=== PATIENT | male | born 1985 | race Caucasian/White ===

== ENCOUNTER → 2017-03-27 | Day surgery (SDC) | payer OTHER ==
[~2017-03-27] VITALS: Ht 175.3 cm; Wt 92.5 kg
[~2017-03-27] MED LIST: BACTRIM DS TAB1 EACH PO; HYDROCODON-ACE1 EAC8 PO; KEFLEX500 MG PO; TRIPLE ANTIBIO1 EACH TOP
--- NOTE | 2017-03-27 12:13 | NUR ---
MED REC COMPLETE--FACILITY MAR
--- NOTE | 2017-03-27 14:11 | NUR ---
03/27/17 1411 Marianna mC PT ARRIVES TO DEPT AWAKE AND TALKING W/EOCI OFFICERS (2). PT REPORTS IMPROVEMENT IN PAIN AFTER PRN.
--- NOTE | 2017-03-30 14:28 | HP ---
[facility] [address], [place] [address] Signed DATE OF ADMISSION: 03/27/17 CHIEF COMPLAINT: Genital problem. HISTORY PRESENTING ILLNESS Mr. Ellis is a 32-year-old male who is a prisoner at the [facility] who presented to the emergency department this morning with a seven-day history of erythema and swelling associated with a foreign body that had been previously placed under the skin of his penis around four years ago. The patient denies any fevers and chills; however, he does have a temperature of 10 0 .2 degrees Fahrenheit on presentation today. Initially, the patient was adamant that he wanted to keep the marble in place and just have the skin closed over the top of the marble. He otherwise states that he feels fine and denies any subjective fevers, c hills, or any severe discomfort associated with the foreign body. He has a normal erectile function and denies any difficulties voiding. He also has two other marbles in place on the dorsal shaft of the penis that do not appear to be infected. REVIEW OF SYSTEMS GENITOURINARY: Positive for swelling and erythema of the distal penile shaft, associated with some mild tenderness of the superficial foreign body of the penis. CONSTITUTIONAL: The patient denies any fevers, chills, nausea, vomiting, abdominal pain, shortness of breath, or difficulty voiding. PAST MEDICAL HISTORY: None. PAST SURGICAL HISTORY The patient has undergone surgery on his right ankle three times, along with wrist surgery. SOCIAL HISTORY The patient is currently a prisoner at [facility]. He has been incarcerated for three years and is due to remain incarcerated for approximately four more years. He denies any tobacco or alcohol use. FAMILY HISTORY Family history has been reviewed, and there is nothing pertinent to the patient's current clinical presentation. PHYSICAL EXAM VITAL SIGNS: The patient's temperature is 100.2 degrees Fahrenheit. He is otherwise vitally stable. GENERAL: The patient is alert and oriented and in no acute distress. He is answering all Electronically Signed By: MADHAV JAVIER MD 03/30/17 1428 PATIENT NAME: SCOOBY ESPARZA HISTORY AND PHYSICAL DATE OF : 89 PHYSICIAN: MADHAV JAVIER MD REPORT #: [id number] REPORT IS CONFIDENTIAL AND NOT TO BE RELEASED WITHOUT AUTHORIZATION [facility] [address], [place] [address] Signed questions appropriately. CARDIOVASCULAR: Reveals a regular rate and rhythm. LUNGS: His lungs are clear to auscultation. ABDOMEN: Soft and nondistended. GENITOURINARY: Reveals the presence of a black marble that is approximately 1 cm in diameter that is a protruding from underneath the superficial skin of the penis. I suspect that the marble is beneath the Carrion's fascia, but is superficial to the tunic albuginea of the corporal bodies. The marble is mobile, and the skin surrounding the marble is erythematous, and there is an area of necrotic tissue within the wound. Otherwise, it does not appear to be fluctuant. LABS CBC and BMP were drawn in the Emergency Department and both are within normal limits. Of note, his white blood cell count is 5.5. Creatinine 0.8. IMAGING: None. ASSESSMENT: Superficial foreign body of the penis, infected. PLAN I had a long discussion today with the patient and finally was able to talk him into explanting the marble. He initially only wanted the closure of the skin over the marble; however, I explained to him that this would very much likely result in worsening infection of the area and could potentially begin to involve his corporal bodies. After a long discussion, I was able to talk the patient into explantation of the marble along with thorough irrigation of the remaining pocket and possible loose closure of the wound site. I explained the risks and benefits of the procedure including bleeding, residual infection, and damage to the corporal bodies, and the patient has agreed to proceed. He ate at 0530 this morning, so we will begin surgery at around 1 or 1:30 p.m. later today. Once the surgery is complete, the patient will be sent back to the detention and will remain in the infirmary for the next one to two weeks. MD JEANNIE Bowman/Kalyan /[id number] Electronically Signed By: MADHAV JAVIER MD 03/30/17 1428 PATIENT NAME: SCOOBY ESPARZA HISTORY AND PHYSICAL DATE OF : 89 PHYSICIAN: MADHAV JAVIER MD REPORT #: [id number] REPORT IS CONFIDENTIAL AND NOT TO BE RELEASED WITHOUT AUTHORIZATION [facility] [address] [place] [id number] Signed cc: Antonio Reaves MD Electronically Signed By: MADHAV JAVIER MD 03/30/17 1428 PATIENT NAME: SCOOBY ESPARZA HISTORY AND PHYSICAL DATE OF : 89 PHYSICIAN: MADHAV JAVIER MD REPORT #: [id number] REPORT IS CONFIDENTIAL AND NOT TO BE RELEASED WITHOUT AUTHORIZATION
--- NOTE | 2017-03-30 14:28 | OR ---
[facility] [address], [place] [address] Signed DATE OF PROCEDURE: 03/27/17 PREOPERATIVE DIAGNOSIS: Superficial foreign body in the penis, infected. POSTOPERATIVE DIAGNOSIS: Superficial foreign body in the penis, infected. NAMES OF PROCEDURES Excision of foreign body from penis. Drainage and irrigation of infected penile wound, followed by loose closure. SURGEONS: Madhav Javier. ANESTHESIA: MAC. ESTIMATED BLOOD LOSS: Minimal. COMPLICATIONS: None. SPECIMENS: Infected round object placed in a specimen cup. COMPLICATIONS: None. INDICATIONS FOR PROCEDURE Mr. Moses is a healthy 32-year-old male who presented to emergency department this morning with a 7-day history of swelling and erythema around a foreign body present in the pendulous portion of the urethra, on the dorsal side. Initially, there were 2 foreign bodies present; however, 1 was removed manually by the patient. He presented this morning requesting that the wound to be closed; however, we did not agree to this because the wound appeared actively infected. After a long discussion with the patient, he did agree to undergo excision of the foreign body from the penis along with thorough irrigation of the infected area as well as wound closure. DETAILS OF THE PROCEDURE After informed consent was obtained, the patient was taken back to the operating room. He was transferred from the [facility] to the operative room table where MAC anesthesia was induced. He was placed in the supine position and his genitalia were prepped and draped in the standard sterile fashion. A small incision was made over the foreign body, which was then removed from under the skin without difficulty. A curette was then used to do debride the inflammatory pocket created by the foreign body. There was a wound noted just inferior to the existing wound that was the area of which the previous marble had been placed. This area was thoroughly irrigated and debrided as well during today's procedure. After debridement of the wound, it was then irrigated with both hydrogen Electronically Signed By: MADHAV JAVIER MD 03/30/17 1428 PATIENT NAME: SCOOBY MOSES OPERATIVE REPORT DATE OF : 89 PHYSICIAN: MADHAV JAVIER MD REPORT #: [id number] REPORT IS CONFIDENTIAL AND NOT TO BE RELEASED WITHOUT AUTHORIZATION [facility] [address] [place], [place] [address] Signed peroxide as well as neomycin solution. The edges of the wound were then incised until I could appreciate healthy tissue on both sides of the wound. Again, the wound was thoroughly irrigated. Once I was satisfied that the wound was clean, it was then closed in a simple interrupted fashion using 3-0 Vicryl. I did leave some areas without sutures in case the wound required any drainage in the postoperative period. The area was then cleaned and dried and dressings were applied. The procedure was then terminated. The patient tolerated the procedure well without any complication. He will now be transferred to the post anesthesia care unit in stable condition. DISPOSITION The patient is a prisoner at [facility], and will be transferred back over to the [facility] today. Instructed the patient to keep his current dressing on for at least the next 48 hours to allow epithelialization of the incision. Once the dressing is removed, he can leave it open to air and try to avoid manipulating the incision as much as he can. He will be continuing his Keflex for the next few days per his existing prescription by the snf physician. I will add oral Bactrim Double Strength b.i.d. for a total of 7 days. He will be scheduled to return to clinic in approximately 2 weeks for a postoperative evaluation. MD JEANNIE Bowman/Modl /[id number] cc: Antonio Reaves MD Electronically Signed By: MADHAV JAVIER MD 03/30/17 1428 PATIENT NAME: SCOOBY MOSES OPERATIVE REPORT DATE OF : 89 PHYSICIAN: MADHAV JAVIER MD REPORT #: [id number] REPORT IS CONFIDENTIAL AND NOT TO BE RELEASED WITHOUT AUTHORIZATION
== END ==
LOC: ED 08:32 → CCU 08:34 → DS 14:11 → CCU 15:57
PROVIDERS: Urology
PROC: 0JC Subcutaneous Tissue and Fascia, Extirpation (ICD-10-PCS; principal; 2017-03-27 13:00)
DX: M79.5 Residual foreign body in soft tissue (principal); L08.9 Local infection of the skin and subcutaneous tissue, unspecified
CPT/HCPCS: 00920; 80048; 83605; 85025; 96374; 96375; 99285; J0696; J1885; J2405; J2704; J2765; J3010; J7030